=== PATIENT | female | born 1990 | race African-American/Black ===

== ENCOUNTER 2017-02-19 10:02 | Emergency (ER) | payer MEDICAID, OTHER ==
[~2017-02-19] VITALS: Ht 162.6 cm; Wt 49.0 kg
[~2017-02-19 10:02] MED LIST: PREN1TAB49 PO
[2017-02-19 10:04] VITALS: BP 121/71
== END 2017-02-19 16:38 | disposition left against medical advice (07) ==
LOC: ER 10:22
DX: Z53.21 Procedure and treatment not carried out due to patient leaving prior to being seen by health care provider (principal)
CPT/HCPCS: 93005